=== PATIENT | female | born 2000 | race Caucasian/White ===

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

== ENCOUNTER 2022-02-28 06:14 | Emergency (ER) | payer MEDICAID ==
[~2022-02-28] VITALS: Ht 162.6 cm; Wt 65.9 kg
[2022-02-28 06:22] VITALS: BP 134/80
--- NOTE | 2022-02-28 06:42 | NUR ---
HARMAN RN CALLED, URINE OBTAINED FOR UA/HCG. GIBRAN CALLED BY [employer]INEER, CASE # WILL BE PROVIDER AT TIME OF [employer] INTERVIEW PT OFFERED AN ADVOCATE FROM [facility] AND PT DECLINED, SHE HAS A FRIEND WITH HERE IN [facility] AWAITING LAW ENFORCEMENT.
[2022-02-28 07:04] LABS: URINE HCG NEGATIVE (NEG)
[2022-02-28 07:05] LABS: CLARITY,URINE CLEAR (Clear); GLUCOSE, URINE NEGATIVE (Neg); KETONES,URINE NEGATIVE (Neg); LEUKOCYTE ESTERASE ,URINE NEGATIVE (Neg); NITRITES, URINE NEGATIVE (Neg); OCCULT BLOOD,URINE NEGATIVE (Neg); PH,URINE 6.5 (4.8-8.0); PROTEIN,URINE NEGATIVE (Neg); UROBILINOGEN,URINE 0.2 E.U/dL (0.2-1.0)
[2022-02-28 07:10] LABS: COLOR,URINE STRAW (Yellow); UA COLLECTION TYPE OTHER
[2022-02-28] MEDS ORDERED: azithromycin 250mg tablet PO ONE (07:20)
[2022-02-28] MEDS ORDERED: LEVONORGESTREL 1.5MG tablet 1.5 MG TABLET PO ONE (07:20)
[2022-02-28] MEDS ORDERED: CefTRIAXone 500MG IM Kit w/LIDOcaine (for pt below or = to 150kg) IM ONE (07:20)
--- NOTE | 2022-02-28 11:25 | NUR ---
Sart exam completed as requested. . Pt given STI prophalaxis as ordered. Pt consummed ETOH within 12 hrs, RX Tinidazole omited. Message left with Yahaira at [facility] for F/U scheduling. Bruises and Tenderness noted, otherwise no physical further injuries noted. Pt declined [facility] advocate and declined Shower. Pt verbalizes understanding of Discharge orders.
== END 2022-02-28 12:56 | disposition home or self-care (01) ==
LOC: EEVIPCON 06:14 → ER 06:14
DX: T74.21XA Adult sexual abuse, confirmed, initial encounter (principal); Z91.041 Radiographic dye allergy status
CPT/HCPCS: 81003; 81025; 96372; 99285; J0696

== ENCOUNTER 2022-06-05 11:54 | Emergency (ER) | payer MEDICAID, OTHER ==
[~2022-06-05] VITALS: Ht 162.6 cm; Wt 68.0 kg
[2022-06-05 12:05] VITALS: BP 118/79
== END 2022-06-05 15:22 | disposition left against medical advice (07) ==
LOC: ER 11:55
DX: S61.512D Laceration without foreign body of left wrist, subsequent encounter (principal); Z53.21 Procedure and treatment not carried out due to patient leaving prior to being seen by health care provider; Z48.00 Encounter for change or removal of nonsurgical wound dressing; X58.XXXD Exposure to other specified factors, subsequent encounter

== ENCOUNTER 2022-07-24 18:49 | Emergency (ER) | payer MEDICAID ==
[~2022-07-24] VITALS: Ht 162.6 cm; Wt 69.2 kg
[2022-07-24 18:59] VITALS: BP 129/90
[2022-07-24] MEDS ORDERED: LIDO20SO16 PO (22:19)
== END 2022-07-24 23:27 | disposition home or self-care (01) ==
LOC: ER 18:50
DX: K05.10 Chronic gingivitis, plaque induced (principal); Z91.040 Latex allergy status
CPT/HCPCS: 99283